=== PATIENT | male | born 1960 | race Caucasian/White ===

== ENCOUNTER 2023-10-01 14:22 | Inpatient (IN) | payer OTHER ==
[~2023-10-01] VITALS: Ht 175.3 cm; Wt 89.4 kg
[2023-10-01] MEDS ORDERED: DILTIAZEM HCL 5MG/ML 5ML VIAL IV ONE (15:00)
[2023-10-01] MEDS ORDERED: SODIUM CHLORIDE 0.9% 1,000 ML IV ONE (15:00)
[2023-10-01 15:18] LABS: BASOPHILS % 0.3 % (0.0-2.0); EOSINOPHILS % 0.3 % (0.0-5.0); HEMOGLOBIN. 14.9 g/dL (14.0-18.0); LYMPHOCYTES % 11.1 % (20.0-50.0); MEAN CORPUSCULAR HEMOGLOBIN 34.3 pg (28.0-32.0); MEAN CORPUSCULAR HGB CONC 34.7 g/dL (31.0-37.0); MEAN CORPUSCULAR VOLUME 98.8 fL (80.0-94.0); MEAN PLATELET VOLUME 9.2 fl (7.4-10.4); MONOCYTES % 10.1 % (2.0-8.0); NEUTROPHILS % 78.2 % (40.0-76.0); PLATELET 195 x1000/uL (130-400); RED BLOOD CELL COUNT 4.35 mill/uL (4.7-6.1); WHITE BLOOD COUNT 9.3 x1000/uL (4.5-11.0)
[2023-10-01 15:28] LABS: D-DIMER 0.98 mg/L FEU (<0.50); INR 1.1; PARTIAL THROMBOPLASTIN TIME 25.2 sec (23.4-31.0); PROTHROMBIN TIME 11.9 sec (9.6-11.0)
[2023-10-01] MEDS: FUROSEMIDE 40MG/4ML VIAL IVP SCH ×2 (15:30→19:09)
[2023-10-01 15:33] LABS: ALANINE AMINOTRANSFERASE 54 IU/L (10-49); ALBUMIN 3.3 g/dL (3.2-4.8); ASPARTATE AMINOTRANSFERASE 42 IU/L (<34); BILIRUBIN TOTAL 1.2 mg/dL (0.1-1.0); CALCIUM 8.6 mg/dL (8.7-10.4); CARBON DIOXIDE 21 mEq/L (21-32); CHLORIDE 107 mEq/L (98-107); CREATININE 0.8 mg/dL (0.6-1.3); GLUCOSE 131 mg/dL (70-105); PROTEIN TOTAL 5.8 g/dL (6.0-8.3); SODIUM 137 mEq/L (136-145); UREA NITROGEN BLOOD 21 mg/dL (9-23)
[2023-10-01 15:59] LABS: ETHANOL BLOOD < 10 mg/dL (<10); TROPONIN I HIGH SENSITIVITY 254 ng/L (3.0-53)
[2023-10-01] MEDS ORDERED: CEFTRIAXONE 1GM PREMIX 50 ML IV ONE (17:00)
[2023-10-01] MEDS ORDERED: ENOXAPARIN 80MG/0.8ML SYR SUBCUT ONE (17:00)
[2023-10-01] MEDS ORDERED: SODIUM CHLORIDE 0.9% 1000ML BAG (SEPSIS BOLUS) IV ONE (17:00)
[2023-10-01] MEDS ORDERED: AZITHROMYCIN 500MG/250ML 250 ML IV ONE (17:00)
[2023-10-01 17:17] LABS: CLARITY URINE CLEAR (CLEAR); COLOR URINE YELLOW (YELLOW); GLUCOSE URINE NEGATIVE (NEGATIVE); KETONES URINE NEGATIVE (NEGATIVE); LEUKOCYTE ESTERASE URINE NEGATIVE (NEGATIVE); NITRITE URINE NEGATIVE (NEGATIVE); OCCULT BLOOD URINE NEGATIVE (NEGATIVE); PH URINE 6.5 (4.5-8.0); PROTEIN URINE NEGATIVE (NEGATIVE); SPECIFIC GRAVITY URINE 1.006 (1.005-1.030); UROBILINOGEN URINE 0.2 E.U./dL (0.2-1.0)
[2023-10-01 17:27] LABS: TROPONIN I HIGH SENSITIVITY 228 ng/L (3.0-53)
[2023-10-01] MEDS: APIXABAN 5 MG TABLET PO SCH (17:49)
[2023-10-01] MEDS: DILTIAZEM HCL 60MG TABLET PO SCH (18:03)
[2023-10-01 18:59] LABS: *AMPHETAMINES SCREEN URINE NEGATIVE (NEGATIVE); *BARBITURATES SCREEN URINE NEGATIVE (NEGATIVE); *BENZODIAZEPINES SCREEN URINE NEGATIVE (NEGATIVE); *COCAINE SCREEN URINE NEGATIVE (NEGATIVE); CANNABINOID URINE SCREEN NEGATIVE (NEGATIVE); METHADONE URINE SCREEN Neg (NEGATIVE); OPIATES URINE SCREEN NEGATIVE (NEGATIVE); PHENCYCLIDINE URINE SCREEN NEGATIVE (NEGATIVE)
[2023-10-01 20:00] VITALS: BP 101/70; PULSE 69; RESP 18; TEMP 97.8
[2023-10-01] MEDS ORDERED: LORAZEPAM 0.5MG TABLET PO PRN (21:30)
[2023-10-01] MEDS ORDERED: IPRATROPIUM/ALBUTEROL 0.5-3(2.5)MG/3ML NEB HHN PRN (21:30)
[2023-10-01] MEDS ORDERED: ONDANSETRON HCL 4MG/2ML INJ IV PRN (21:30)
[2023-10-01] MEDS ORDERED: DOCUSATE SODIUM 100MG CAPSULE PO PRN (21:30)
[2023-10-01] MEDS ORDERED: CLONIDINE 0.1MG TABLET PO PRN (21:30)
[2023-10-01] MEDS ORDERED: HYDROCODONE/ACETAMINOPHEN 5/325MG TABLET PO PRN (21:30)
[2023-10-01] MEDS ORDERED: ACETAMINOPHEN 325MG TABLET PO PRN ×2 (21:30)
[2023-10-01] MEDS ORDERED: NALOXONE HCL 0.4MG/ML VIAL IV PRN (21:30)
[2023-10-01 23:00] VITALS: BP 136/71; PULSE 104; RESP 18; TEMP 98.3
[2023-10-02] VITALS: BP 137/66; PULSE 102; RESP 20; TEMP 98.2
[2023-10-02] MEDS: DILTIAZEM HCL 60MG TABLET PO SCH ×2 (00:32→06:22)
[2023-10-02 04:00] VITALS: BP 131/87; PULSE 94; RESP 18; TEMP 97.8
[2023-10-02 06:05] LABS: DIFFERENTIAL COMMENT 0; EOSINOPHILS % 1.1 % (0.0-5.0); HEMATOCRIT. 38.6 % (42.0-52.0); HEMOGLOBIN. 13.3 g/dL (14.0-18.0); LYMPHOCYTES % 18.8 % (20.0-50.0); MEAN CORPUSCULAR HEMOGLOBIN 34.6 pg (28.0-32.0); MEAN CORPUSCULAR HGB CONC 34.6 g/dL (31.0-37.0); MEAN CORPUSCULAR VOLUME 100.1 fL (80.0-94.0); MEAN PLATELET VOLUME 9.6 fl (7.4-10.4); NEUTROPHILS % 66.1 % (40.0-76.0); PLATELET 188 x1000/uL (130-400); RED BLOOD CELL COUNT 3.85 mill/uL (4.7-6.1); RED CELL DISTRIBUTION WIDTH 12.8 % (11.6-14.6); WHITE BLOOD COUNT 7.3 x1000/uL (4.5-11.0)
[2023-10-02 06:29] LABS: CALCIUM 8.5 mg/dL (8.7-10.4); CARBON DIOXIDE 26 mEq/L (21-32); CHLORIDE 106 mEq/L (98-107); CHOLESTEROL 124 mg/dL (<200); CREATININE 0.7 mg/dL (0.6-1.3); GLUCOSE 94 mg/dL (70-105); HDL CHOLESTEROL 39 mg/dL (>55); LDL CHOLESTEROL 79 mg/dL (5-100); POTASSIUM 3.8 mEq/L (3.5-5.1); SODIUM 140 mEq/L (136-145); TRIGLYCERIDE 67 mg/dL (0-150); UREA NITROGEN BLOOD 15 mg/dL (9-23)
[2023-10-02 07:03] LABS: HEPATITIS B SURFACE ANTIGEN NEGATIVE (Negative); HEPATITIS C AB NON REACTIVE (Neg) (Negative)
[2023-10-02] MEDS ORDERED: APIX2.5T MT (07:18)
[2023-10-02 08:00] VITALS: BP 119/63; PULSE 87; RESP 18; TEMP 97.5
[2023-10-02] MEDS: FUROSEMIDE 40MG/4ML VIAL IVP SCH ×2 (08:56→17:55)
[2023-10-02 09:16] LABS: TROPONIN I HIGH SENSITIVITY 227 ng/L (3.0-53)
[2023-10-02] MEDS: APIXABAN 5 MG TABLET PO SCH ×2 (09:34→17:55)
[2023-10-02] MEDS ORDERED: MAGNESIUM 2 G PREMIX 50 ML IV SCH (11:00)
[2023-10-02 12:00] VITALS: BP 135/67; PULSE 87; RESP 18; TEMP 97.8
[2023-10-02] MEDS: DILTIAZEM HCL 90MG TABLET PO SCH ×3 (12:07→23:52)
[2023-10-02 16:00] VITALS: BP 139/73; PULSE 89; RESP 20; TEMP 97.5
[2023-10-02] MEDS ORDERED: APIX2.5T PO (16:11)
[2023-10-02] MEDS ORDERED: ASPI-1406 PO (16:11)
[2023-10-02] MEDS ORDERED: ATOR20TA65 PO (16:12)
[2023-10-02 20:00] VITALS: BP 115/71; PULSE 89; RESP 20; TEMP 97.5
[2023-10-02] MEDS ORDERED: PNEUMOCOCCAL 23-VAL P-SAC VAC 0.5 ML IM ONE (21:00)
[2023-10-03] VITALS: BP 128/74; PULSE 83; RESP 18; TEMP 96.8
[2023-10-03 04:00] VITALS: BP 104/63; PULSE 84; RESP 17; TEMP 97.9
[2023-10-03] MEDS: DILTIAZEM HCL 90MG TABLET PO SCH ×2 (06:25→12:10)
[2023-10-03 07:42] LABS: BASOPHILS % 0.3 % (0.0-2.0); EOSINOPHILS % 0.9 % (0.0-5.0); HEMOGLOBIN. 14.2 g/dL (14.0-18.0); LYMPHOCYTES % 14.9 % (20.0-50.0); MEAN CORPUSCULAR HGB CONC 34.6 g/dL (31.0-37.0); MEAN CORPUSCULAR VOLUME 98.2 fL (80.0-94.0); MEAN PLATELET VOLUME 9.5 fl (7.4-10.4); MONOCYTES % 11.5 % (2.0-8.0); NEUTROPHILS % 72.4 % (40.0-76.0); PLATELET 187 x1000/uL (130-400); RED BLOOD CELL COUNT 4.17 mill/uL (4.7-6.1); RED CELL DISTRIBUTION WIDTH 12.9 % (11.6-14.6); WHITE BLOOD COUNT 6.9 x1000/uL (4.5-11.0)
[2023-10-03 07:51] LABS: CALCIUM 8.6 mg/dL (8.7-10.4); CARBON DIOXIDE 26 mEq/L (21-32); CHLORIDE 104 mEq/L (98-107); CREATININE 0.6 mg/dL (0.6-1.3); GLUCOSE 112 mg/dL (70-105); POTASSIUM 3.6 mEq/L (3.5-5.1); SODIUM 139 mEq/L (136-145); UREA NITROGEN BLOOD 12 mg/dL (9-23)
[2023-10-03 08:00] VITALS: BP 105/75; PULSE 115; RESP 18; TEMP 97.7
[2023-10-03] MEDS: APIXABAN 5 MG TABLET PO SCH (09:11)
[2023-10-03] MEDS: FUROSEMIDE 40MG/4ML VIAL IVP SCH (09:11)
[2023-10-03] MEDS ORDERED: APIX5TAB PO (11:06)
[2023-10-03] MEDS ORDERED: FURO40TA5 MT (11:06)
[2023-10-03] MEDS ORDERED: DILT90TA2 PO (11:06)
[2023-10-03 12:00] VITALS: BP 142/78; PULSE 102; RESP 18; TEMP 97.9
[2023-10-03] MEDS ORDERED: MAGNESIUM 2 G PREMIX 50 ML IV SCH (12:00)
[2023-10-03 14:31] VITALS: BP 142/78; PULSE 105; TEMP 97.7; O2SAT 98
[2023-10-03] MEDS ORDERED: CARVEDILOL 3.125 MG TABLET PO SCH (21:00)
[2023-10-04] MEDS ORDERED: LOSARTAN 25 MG TABLET PO SCH (09:00)
== END 2023-10-03 15:19 | disposition home or self-care (01) | DRG 280 ==
LOC: ER 14:22 → 8WST 16:55
PROVIDERS: ADMIT Family Medicine Adult Medicine; ATTEND Family Medicine Adult Medicine
DX: I21.4 Non-ST elevation (NSTEMI) myocardial infarction (principal); I50.21 Acute systolic (congestive) heart failure; J18.9 Pneumonia, unspecified organism; I42.9 Cardiomyopathy, unspecified; Z20.822 Contact with and (suspected) exposure to COVID-19; I48.91 Unspecified atrial fibrillation; I25.10 Atherosclerotic heart disease of native coronary artery without angina pectoris; Z79.82 Long term (current) use of aspirin
CPT/HCPCS: 36415; 71045; 71275; 80048; 80053; 80061; 80305; 80320; 81003; 83605; 83735; 84443; 84484; 85025; 85379; 86705; 87340; 87426; 90732; 93005; 93306; 93970; 99285; C9803; J0456; J0696; J1650; J1940; J3475; J3490; J7030; G0480